=== PATIENT | female | born 1975 | race Caucasian/White ===

== ENCOUNTER 2018-09-20 18:03 | Inpatient (IN) | payer OTHER ==
[~2018-09-20] VITALS: Ht 147.3 cm; Wt 62.0 kg
--- NOTE | 2018-09-20 18:22 | NUR ---
RN USED [employer] [id number] TO OBTAIN H&P: PT PRESENTED TO ED D/T INCREASE UTERINE PAIN SINCE 09/18. PT WAS SEEN AT , [facility], AND A "CLINIC" ON 09/18 D/T COMPLAINTS OF NOT BEING ABLE TO URINATE. PT WAS DIAGNOSED WITH UTERINE FIBROIDS AND WAS SCHEDULED TO HAVE SURGERY TOMORROW BUT WAS CANCELED. PT WAS PRESCRIBED MACROBID 100MG BID TO HELP WITH UTERINE SYMPTOMS. PT STATES SHE CANT GO ON WITH THIS PAIN AND WANTS IT TO BE REMOVED. AT BEDSIDE. PT AMBULATED TO RESTROOM TO TRY AND PROVIDE RN WITH A URINE SAMPLE. STEADY GAIT. Addendum: 09/20/18 at 1835 by ANUSHKA RN USED [employer]PTOR [id number] TO OBTAIN H&P: PT PRESENTED TO ED D/T INCREASE UTERINE PAIN SINCE 09/18. PT WAS SEEN AT [facility], AND A "CLINIC" ON 09/18 D/T COMPLAINTS OF NOT BEING ABLE TO URINATE. PT WAS DIAGNOSED WITH UTERINE FIBROIDS AND WAS SCHEDULED TO HAVE SURGERY TOMORROW BUT WAS CANCELED. PT WAS PRESCRIBED MACROBID 100MG BID TO HELP WITH UTERINE SYMPTOMS. SOARES CATHETER PRESENT ON ARRIVAL. PT STATES SHE CANT GO ON WITH THIS PAIN AND WANTS IT TO BE REMOVED. AT BEDSIDE. PT AMBULATED TO RESTROOM TO TRY AND PROVIDE RN WITH A URINE SAMPLE. STEADY GAIT.
[2018-09-20] MEDS ORDERED: AMLO10TA8 PO (18:34)
[2018-09-20] MEDS ORDERED: NITR100C56 PO (18:34)
--- NOTE | 2018-09-20 18:36 | NUR ---
INTERRUPTOR [id number] USED BY [facility].
[2018-09-20] MEDS ORDERED: SODIUM CHLORIDE 0.9% 1,000 ML IV ONE (18:53)
--- NOTE | 2018-09-20 18:55 | NUR ---
REPORT TO ANA LAU.
[2018-09-20 19:00] LABS: BASOPHILS % (AUTO) 0 % (0-1); EOSINOPHILS # (AUTO) 0.04 x10^3/uL (0-0.4); EOSINOPHILS % (AUTO) 1 % (1-7); LYMPHOCYTES # (AUTO) 1.33 x10^3/uL (1-3.4); LYMPHOCYTES % (AUTO) 18 % (22-44); MD NO; MEAN CORPUSCULAR HEMOGLOBIN 26.5 pg (27.0-34.8); MEAN CORPUSCULAR HGB CONC 31.8 g/dL (32.4-35.8); MEAN CORPUSCULAR VOLUME 83.3 fL (80-100); MEAN PLATELET VOLUME 9.2 fL (7.4-10.4); MONOCYTES # (AUTO) 0.42 x10^3/uL (0.2-0.8); MONOCYTES % (AUTO) 6 % (2-9); NEUTROPHILS # (AUTO) 5.54 x10^3/uL (1.8-6.8); NEUTROPHILS % (AUTO) 76 % (42-75); PLATELET COUNT 342 x10^3/uL (130-400); RED BLOOD COUNT 2.95 x10^6/uL (3.82-5.3); RED CELL DISTRIBUTION WIDTH 16.6 % (9.6-15.2)
[2018-09-20] MEDS ORDERED: SODIUM CHLORIDE FLUSH 10ML SYR IVF PRN (19:00)
[2018-09-20] MEDS ORDERED: SODIUM CHLORIDE FLUSH 10ML SYR IVF ONE (19:00)
[2018-09-20 19:08] LABS: ANION GAP 7 mmol/L (5-15); CHLORIDE 112 mmol/L (98-107); CREATININE 0.83 mg/dL (0.55-1.02)
--- NOTE | 2018-09-20 19:23 | NUR ---
PT REQUESTING MEDICINE FOR HER HEADACHE. INFORMED. NO MEDS TO BE GIVEN AT THIS TIME PT IS GOING TO SURGERY SOON. PT AND SPOUSE INFORMED. PT AND SPOUSE DENY FURTHER NEEDS AT THIS TIME.
[2018-09-20 21:23] VITALS: BP 163/92
[2018-09-20] MEDS ORDERED: IBUPROFEN 200 MG TABLET PO PRN (23:00)
[2018-09-20] MEDS ORDERED: niFEDipine ER 30 MG TABLET.ER PO ONE (23:00)
[2018-09-20] MEDS ORDERED: ACETAMINOPHEN 325 MG TABLET PO PRN (23:00)
[2018-09-20] MEDS ORDERED: ONDANSETRON 4 MG TABLET PO PRN (23:00)
[2018-09-21 00:09] VITALS: BP 135/80
[2018-09-21] MEDS ORDERED: HYDROmorphone 2 MG/ML, 1ML IVPush PRN (10:00)
[2018-09-21] MEDS ORDERED: OXYcodone 5 MG/5 ML ORAL.SOL UDC PO PRN (10:00)
[2018-09-21] MEDS ORDERED: ACETAMINOPHEN 325 MG TABLET PO PRN ×2 (10:00→12:30)
[2018-09-21] MEDS ORDERED: hydrALAzine 20 MG/ML, 1ML IV PRN (10:00)
[2018-09-21] MEDS ORDERED: LORazepam 2 MG/ML, 1ML IVPush PRN (10:00)
[2018-09-21] MEDS ORDERED: LABETALOL 5MG/ML, 20ML IV PRN (10:00)
[2018-09-21] MEDS ORDERED: ONDANSETRON ODT 8 MG PO PRN (10:00)
[2018-09-21] MEDS ORDERED: ONDANSETRON 2MG/ML, 2ML IV PRN (10:00)
[2018-09-21] MEDS ORDERED: PROMETHAZINE 25 MG/ML, 1ML IV PRN (10:00)
[2018-09-21] MEDS: FENTANYL PF 100 MCG/2ML IV PRN ×4 (11:02→11:50)
[2018-09-21 12:15] VITALS: BP 156/66
[2018-09-21] MEDS ORDERED: ACETAMINOPHEN 650 MG SUPP PR PRN (12:30)
[2018-09-21] MEDS ORDERED: morphine SULFATE 10 MG/ML, 1ML IV PRN (12:30)
[2018-09-21] MEDS ORDERED: CEFAZOLIN 1,000 MG ONE (14:34)
[2018-09-21] MEDS ORDERED: ROCURONIUM 10MG/ML,5ML ONE (14:34)
[2018-09-21] MEDS ORDERED: DEXAMETHASONE 4 MG/ML, 1ML ONE (14:34)
[2018-09-21] MEDS ORDERED: SUGAMMADEX 200 MG/2 ML IVPush ONE (14:34)
[2018-09-21] MEDS ORDERED: ONDANSETRON 2MG/ML, 2ML ONE (14:34)
[2018-09-21] MEDS ORDERED: PROPOFOL 10 MG/ML, 20ML ONE (14:34)
[2018-09-21] MEDS: POTASSIUM CHLORIDE 20 MEQ in D5%-LACTATED RINGERS 1,000 ML IV SCH ×2 (14:59→21:21)
[2018-09-21] MEDS: IBUPROFEN 600 MG TABLET PO SCH ×2 (17:09→21:19)
[2018-09-21 19:05] VITALS: BP 134/89
[2018-09-21] MEDS: NITROFURANTOIN (MACROBID) 100 MG CAPSULE PO SCH (21:00)
[2018-09-21] MEDS: niFEDipine ER 30 MG TABLET.ER PO SCH (21:00)
[2018-09-21] MEDS: DOCUSATE 100 MG CAPSULE PO SCH (21:19)
[2018-09-21] MEDS: OXYcodone IR 5MG TABLET PO PRN (21:19)
[2018-09-22 00:09] VITALS: BP 131/87
[2018-09-22] MEDS: POTASSIUM CHLORIDE 20 MEQ in D5%-LACTATED RINGERS 1,000 ML IV SCH ×3 (05:32→22:15)
[2018-09-22] MEDS: IBUPROFEN 600 MG TABLET PO SCH ×4 (06:15→22:00)
[2018-09-22] MEDS: OXYcodone/APAP 5/325MG TABLET PO PRN ×2 (07:45→14:22)
[2018-09-22 07:47] VITALS: BP 132/85
[2018-09-22] MEDS: AMLODIPINE 10 MG TAB PO SCH (07:52)
[2018-09-22] MEDS: NITROFURANTOIN (MACROBID) 100 MG CAPSULE PO SCH ×2 (07:54→20:07)
[2018-09-22 08:09] VITALS: BP 127/80
[2018-09-22] MEDS: DOCUSATE 100 MG CAPSULE PO SCH ×2 (11:11→20:07)
[2018-09-22 14:36] VITALS: BP 134/84
[2018-09-22 18:53] VITALS: BP 132/85
[2018-09-22] MEDS: OXYcodone IR 5MG TABLET PO PRN (19:27)
[2018-09-22] MEDS: niFEDipine ER 30 MG TABLET.ER PO SCH (20:07)
[2018-09-23 00:32] VITALS: BP 126/74
[2018-09-23] MEDS: IBUPROFEN 600 MG TABLET PO SCH ×4 (06:19→21:18)
[2018-09-23] MEDS: POTASSIUM CHLORIDE 20 MEQ in D5%-LACTATED RINGERS 1,000 ML IV SCH ×3 (06:19→22:30)
[2018-09-23 07:22] VITALS: BP 121/80
[2018-09-23] MEDS: NITROFURANTOIN (MACROBID) 100 MG CAPSULE PO SCH ×2 (09:00→21:19)
[2018-09-23] MEDS: DOCUSATE 100 MG CAPSULE PO SCH ×2 (09:40→21:18)
[2018-09-23] MEDS: AMLODIPINE 10 MG TAB PO SCH (09:41)
[2018-09-23] MEDS ORDERED: OMNIPAQUE 350 MG/ML, 150 ML BOTTLE ONE (09:41)
[2018-09-23] MEDS ORDERED: OXYC-302 PO (12:15)
[2018-09-23] MEDS ORDERED: IBUP200T49 PO (12:19)
[2018-09-23] MEDS ORDERED: ONDA4TAB7 PO (12:20)
[2018-09-23] MEDS ORDERED: NIFE20CA PO (12:20)
[2018-09-23 14:03] VITALS: BP 117/73
[2018-09-23 19:43] VITALS: BP 125/82
[2018-09-23] MEDS: niFEDipine ER 30 MG TABLET.ER PO SCH (21:18)
[2018-09-24 02:17] VITALS: BP 122/86
[2018-09-24] MEDS: IBUPROFEN 600 MG TABLET PO SCH ×3 (05:02→16:00)
[2018-09-24] MEDS: POTASSIUM CHLORIDE 20 MEQ in D5%-LACTATED RINGERS 1,000 ML IV SCH ×2 (05:06→14:40)
[2018-09-24 07:22] VITALS: BP 127/86
[2018-09-24] MEDS: NITROFURANTOIN (MACROBID) 100 MG CAPSULE PO SCH (09:00)
[2018-09-24] MEDS: AMLODIPINE 10 MG TAB PO SCH (09:00)
[2018-09-24] MEDS: DOCUSATE 100 MG CAPSULE PO SCH (11:14)
[2018-09-24 12:47] VITALS: BP 147/94
== END 2018-09-24 17:37 | disposition home or self-care (01) | DRG 742 ==
LOC: ED 20:05 → EDIP 20:07 → 4NOR 20:12
PROVIDERS: ADMIT Obstetrics & Gynecology; ATTEND Obstetrics & Gynecology
PROC: 0UT70ZZ Resection of Bilateral Fallopian Tubes, Open Approach (ICD-10-PCS; 2018-09-21)
PROC: 30233N1 Transfusion of Nonautologous Red Blood Cells into Peripheral Vein, Percutaneous Approach (ICD-10-PCS; 2018-09-21)
PROC: 0UT90ZZ Resection of Uterus, Open Approach (ICD-10-PCS; principal; 2018-09-21 08:00)
DX: D25.1 Intramural leiomyoma of uterus (principal); D62 Acute posthemorrhagic anemia; K66.0 Peritoneal adhesions (postprocedural) (postinfection); I10 Essential (primary) hypertension; R33.9 Retention of urine, unspecified; Z87.440 Personal history of urinary (tract) infections
CPT/HCPCS: 36415; J7121; 74178; 80048; 81025; 85014; 85018; 85025; 86850; 86900; 86923; 88307; 93005; G0378; J0171; J0690; J1100; J2250; J2405; J2704; J2710; J3010; J3480; J3490; Q9967; J0330; J0360; J2270; J2590; J7030; P9016